=== PATIENT | male | born 1955 | race Caucasian/White ===

== ENCOUNTER 2017-03-23 09:32 | Emergency (ER) | payer MEDICAID ==
[2017-03-23 10:04] LABS: APPEARANCE CLEAR (CLEAR); BILIRUBIN NEGATIVE (NEGATIVE); COLOR DK YELLOW (YELLOW); GLUCOSE NEGATIVE (NEGATIVE); KETONE NEGATIVE (NEGATIVE); NITRITE NEGATIVE (NEGATIVE); PROTEIN NEGATIVE (NEGATIVE); SPECIFIC GRAVITY 1.015 (1.005-1.020)
[2017-03-23 10:05] LABS: BACTERIA FEW /hpf (NONE SEEN); EPITHELIAL CELLS 0-5 /hpf (0-5); HYALINE CAST 0-5 /lpf (NONE SEEN); MUCUS <1+ /lpf (NONE SEEN); RED CELLS - URINE OCC /hpf (0-5); WHITE CELLS - URINE 0-5 /hpf (0-5)
[2017-03-23 10:18] LABS: HEMOGLOBIN 15.2 g/dL (13.5-17.5); MCH 36.4 pg (26.0-34.0); MCHC 35.3 g/dL (31.0-37.0); MCV 102.9 fL (80.0-100.0); MEAN PLATELET VOLUME 9.3 fL (7.4-10.4); PLATELET COUNT 313 10x3/uL (130-400); RBC 4.18 10x6/uL (4.20-6.10); RDW 13.6 % (11.5-14.5); WBC 8.8 10x3/uL (4.8-10.8)
[2017-03-23 10:40] LABS: ALBUMIN 3.2 g/dL (3.4-5.0); ANION GAP 10.3 mmol/L (8-16); BILIRUBIN - TOTAL 0.3 mg/dL (0.2-1.3); CALCIUM 8.9 mg/dL (8.5-10.1); CARBON DIOXIDE 29.5 mmol/L (21.0-32.0); CREATININE - SERUM 1.1 mg/dL (0.6-1.3); POTASSIUM - SERUM 3.8 mmol/L (3.5-5.1); PROTEIN - SERUM 7.5 g/dL (6.4-8.2)
[2017-03-23 10:48] LABS: ANISOCYTOSIS OCC; EOSINOPHILS 1 % (0-7); LYMPHOCYTES 41 % (15-50); MONOCYTES 12 % (2-11); NEUTROPHILS 39 % (40-80); PLATELET ESTIMATE NORMAL
[2017-03-23 12:57] LABS: INR 0.97 (0.85-1.17); PROTIME 12.7 SECONDS (11.6-15.0)
== END 2017-03-23 14:45 | disposition home or self-care (01) ==
LOC: D.ER 09:32
PROVIDERS: Emergency Medicine
DX: K92.1 Melena (principal); F17.200 Nicotine dependence, unspecified, uncomplicated

== ENCOUNTER → 2018-02-25 14:43 | Outpatient (CLI) | payer MEDICAID ==
[~2018-02-25 14:43] MED LIST: XARELTO15 MG PO
== END | disposition home or self-care (01) ==
LOC: D.CT 14:43
DX: R06.02 Shortness of breath (principal); I80.299 Phlebitis and thrombophlebitis of other deep vessels of unspecified lower extremity; Z91.14 Patient's other noncompliance with medication regimen

== ENCOUNTER 2018-02-26 11:24 | Emergency (ER) | payer MEDICAID ==
[~2018-02-26] VITALS: Ht 188 cm; Wt 81.4 kg
[2018-02-26 11:49] VITALS: Ht 188 cm; Wt 81.4 kg
[2018-02-26 13:07] LABS: BASOPHILS 0.5 % (0-2); EOSINOPHILS 1.2 % (0-7); HEMATOCRIT 47.1 % (42.0-54.0); HEMOGLOBIN 16.3 g/dL (13.5-17.5); IMMATURE GRANULOCYTES 0.3 % (0-5); LYMPHOCYTES 32.7 % (15-50); MCH 36.4 pg (26.0-34.0); MCHC 34.6 g/dL (31.0-37.0); MCV 105.1 fL (80.0-100.0); MEAN PLATELET VOLUME 10.2 fL (7.4-10.4); MONOCYTES 10.5 % (2-11); NEUTROPHILS 54.8 % (40-80); RBC 4.48 10x6/uL (4.20-6.10); RDW 15.6 % (11.5-14.5)
[2018-02-26 13:18] LABS: PLATELET COUNT 247 10x3/uL (130-400)
[2018-02-26 13:19] LABS: ALBUMIN 3.1 g/dL (3.4-5.0); ALKALINE PHOSPHATASE 95 U/L (46-116); ALT (SGPT) 24 U/L (10-68); BILIRUBIN - TOTAL 0.46 mg/dL (0.2-1.3); CALC OSMOLALITY 269 mosm/kg (275-300); CALCIUM 8.6 mg/dL (8.5-10.1); CARBON DIOXIDE 27.3 mmol/L (21.0-32.0); CHLORIDE - SERUM 99 mmol/L (98-107); GLUCOSE 79 mg/dL (74-106); PROTEIN - SERUM 8.4 g/dL (6.4-8.2); SODIUM 135 mmol/L (136-145); UREA NITROGEN 14 mg/dL (7-18); eGFR NON AFRICAN AMERICAN 81 mL/min (90-120)
[2018-02-26 15:30] VITALS: BP 137/93
[2018-02-26] MEDS ORDERED: XARELTO15 MG PO (16:40)
== END 2018-02-26 17:43 | disposition home or self-care (01) ==
LOC: D.ER 11:24
PROVIDERS: Family Medicine
DX: I26.99 Other pulmonary embolism without acute cor pulmonale (principal); Z86.718 Personal history of other venous thrombosis and embolism; F17.200 Nicotine dependence, unspecified, uncomplicated

== ENCOUNTER → 2018-03-22 09:35 | Outpatient (CLI) | payer MEDICAID ==
[2018-02-26 11:49] VITALS: BMI 23.0
== END | disposition home or self-care (01) ==
LOC: D.US 09:35
DX: I82.403 Acute embolism and thrombosis of unspecified deep veins of lower extremity, bilateral (principal); I26.99 Other pulmonary embolism without acute cor pulmonale